=== PATIENT | female | born 1980 | race Caucasian/White ===

== ENCOUNTER 2021-04-13 19:43 | Emergency (ER) | payer MEDICAID ==
[~2021-04-13] VITALS: Ht 162.6 cm; Wt 81.8 kg
[~2021-04-13 19:43] MED LIST: IBUP-1984 PO; LEVO200T43 PO
[2021-04-13] MEDS ORDERED: ALBU6.7H9 INH (20:17)
[2021-04-13 20:55] VITALS: BP 132/77
== END 2021-04-13 21:58 | disposition home or self-care (01) ==
LOC: ER 19:44
DX: U07.1 COVID-19 (principal); F17.210 Nicotine dependence, cigarettes, uncomplicated; F15.10 Other stimulant abuse, uncomplicated
CPT/HCPCS: 36415; 99283; U0003; U0005

== ENCOUNTER 2021-04-20 21:59 | Emergency (ER) | payer MEDICAID ==
[~2021-04-20] VITALS: Ht 162.6 cm; Wt 78.8 kg
[~2021-04-20 21:59] MED LIST changes: +ALBU6.7H9 INH
[2021-04-20 22:44] LABS: BASOPHILS % (AUTO) 0.5 % (0-1); EOSINOPHILS # (AUTO) 0.1 X10'3 (0-0.9); EOSINOPHILS % (AUTO) 1.5 % (0-6); HEMATOCRIT 34.8 % (35.0-45.0); HEMOGLOBIN 10.7 g/dl (12.0-16.0); LYMPHOCYTES # (AUTO) 3.4 X10'3 (1.1-4.8); LYMPHOCYTES % (AUTO) 38.5 % (21-51); MEAN CORPUSCULAR HEMOGLOBIN 20.9 PG (27.0-31.0); MEAN CORPUSCULAR HGB CONC 30.7 g/dL (33.0-36.5); MEAN CORPUSCULAR VOLUME 68.1 FL (78-98); MEAN PLATELET VOLUME 7.5 FL (7.4-10.4); MONOCYTES # (AUTO) 0.7 X10'3 (0-0.9); MONOCYTES % (AUTO) 8.1 % (2-12); NEUTROPHILS # (AUTO) 4.6 X10'3 (1.8-7.7); NEUTROPHILS % (AUTO) 51.4 % (42-75); PLATELET COUNT 451 X10'3 (140-440); RED BLOOD COUNT 5.11 X10'6 (4.20-5.60); RED CELL DISTRIBUTION WIDTH 17.5 % (11.5-14.5); WHITE BLOOD COUNT 8.9 X10'3 (4.5-11.0)
[2021-04-20 22:52] LABS: ALANINE AMINOTRANSFERASE 21 U/L (12-78); ALBUMIN 3.7 G/DL (3.4-5.0); ALBUMIN/GLOBULIN RATIO 0.9 (1.1-1.5); ALKALINE PHOSPHATASE 182 IU/L (46-116); ANION GAP 9 (8-16); ASPARTATE AMINO TRANSFERASE 16 U/L (10-37); BILIRUBIN,TOTAL 0.2 MG/DL (0.1-1.0); BLOOD UREA NITROGEN 21 MG/DL (7-18); BUN/CREATININE RATIO 27.3 (6.6-38.0); CALCIUM 8.4 MG/DL (8.5-10.1); CHLORIDE 106 MMOL/L (99-107); CREATININE 0.77 MG/DL (0.40-0.90); GLUCOSE 117 MG/DL (70-104); POTASSIUM 4.3 MMOL/L (3.5-5.1); SODIUM 141 MMOL/L (135-145); TOTAL CARBON DIOXIDE 26.1 MMOL/L (24-32); TOTAL PROTEIN 7.9 G/DL (6.4-8.2); eGFR 82 ML/MIN
[2021-04-20 23:00] LABS: TROPONIN I < 0.04 NG/ML (0.0-0.05)
[2021-04-20 23:10] LABS: ANISOCYTOSIS 1+; MICROCYTOSIS 2+; PLATELET ESTIMATE INCREASED
[2021-04-21] MEDS ORDERED: DEC1T PO (01:27)
[2021-04-21 01:32] VITALS: BP 137/68
== END 2021-04-21 01:34 | disposition home or self-care (01) ==
LOC: ER 22:00
DX: U07.1 COVID-19 (principal); R20.0 Anesthesia of skin; F15.90 Other stimulant use, unspecified, uncomplicated; Z87.440 Personal history of urinary (tract) infections; Z90.49 Acquired absence of other specified parts of digestive tract; Z79.899 Other long term (current) drug therapy
CPT/HCPCS: 36415; 71045; 80053; 83880; 84484; 85008; 85025; 93005; 99285

== ENCOUNTER 2021-05-18 17:13 | Emergency (ER) | payer MEDICAID ==
[~2021-05-18] VITALS: Ht 162.6 cm; Wt 77.3 kg
[~2021-05-18 17:13] MED LIST changes: +DEC1T PO
[2021-05-18 17:33] VITALS: BP 127/83
[2021-05-18] MEDS ORDERED: ONDA4TAB6 PO (18:09)
== END 2021-05-18 18:25 | disposition home or self-care (01) ==
LOC: ER 17:14
DX: Z02.89 Encounter for other administrative examinations (principal); F15.90 Other stimulant use, unspecified, uncomplicated; R50.9 Fever, unspecified; Z87.440 Personal history of urinary (tract) infections; Z98.890 Other specified postprocedural states; Z90.49 Acquired absence of other specified parts of digestive tract; Z79.899 Other long term (current) drug therapy
CPT/HCPCS: 99283

== ENCOUNTER 2021-09-01 07:36 | Emergency (ER) | payer MEDICAID ==
[~2021-09-01] VITALS: Ht 162.6 cm; Wt 61.4 kg
[~2021-09-01 07:36] MED LIST changes: +ONDA4TAB6 PO
[2021-09-01 08:07] LABS: BASOPHILS # (AUTO) 0.1 X10'3 (0-0.2); BASOPHILS % (AUTO) 1.1 % (0-1); EOSINOPHILS # (AUTO) 0.3 X10'3 (0-0.9); HEMATOCRIT 34.5 % (35.0-45.0); HEMOGLOBIN 11.1 g/dl (12.0-16.0); LYMPHOCYTES # (AUTO) 2.7 X10'3 (1.1-4.8); LYMPHOCYTES % (AUTO) 34.7 % (21-51); MEAN CORPUSCULAR HEMOGLOBIN 23.4 PG (27.0-31.0); MEAN CORPUSCULAR HGB CONC 32.1 g/dL (33.0-36.5); MEAN CORPUSCULAR VOLUME 72.8 FL (78-98); MONOCYTES # (AUTO) 0.5 X10'3 (0-0.9); MONOCYTES % (AUTO) 6.7 % (2-12); NEUTROPHILS # (AUTO) 4.2 X10'3 (1.8-7.7); NEUTROPHILS % (AUTO) 53.5 % (42-75); PLATELET COUNT 412 X10'3 (140-440); RED BLOOD COUNT 4.73 X10'6 (4.20-5.60); RED CELL DISTRIBUTION WIDTH 16.1 % (11.5-14.5); WHITE BLOOD COUNT 7.9 X10'3 (4.5-11.0)
[2021-09-01 08:16] LABS: ALANINE AMINOTRANSFERASE 18 U/L (12-78); ALBUMIN 3.5 G/DL (3.4-5.0); ALBUMIN/GLOBULIN RATIO 0.9 (1.1-1.5); ALKALINE PHOSPHATASE 138 IU/L (46-116); ANION GAP 11 (8-16); ASPARTATE AMINO TRANSFERASE 18 U/L (10-37); BILIRUBIN,TOTAL 0.3 MG/DL (0.1-1.0); BLOOD UREA NITROGEN 13 MG/DL (7-18); BUN/CREATININE RATIO 15.9 (6.6-38.0); CALCIUM 8.9 MG/DL (8.5-10.1); CHLORIDE 104 MMOL/L (99-107); CREATININE 0.82 MG/DL (0.40-0.90); GLUCOSE 86 MG/DL (70-104); POTASSIUM 3.9 MMOL/L (3.5-5.1); SODIUM 140 MMOL/L (135-145); TOTAL CARBON DIOXIDE 25.3 MMOL/L (24-32); TOTAL PROTEIN 7.6 G/DL (6.4-8.2); eGFR 76 ML/MIN
[2021-09-01] MEDS ORDERED: hydrOXYzine 25 MG tablet PO ONE (12:15)
[2021-09-01] MEDS ORDERED: HYDR-3686 PO (13:52)
[2021-09-01 14:02] VITALS: BP 133/97
== END 2021-09-01 14:12 | disposition home or self-care (01) ==
LOC: ER 07:37
DX: R07.89 Other chest pain (principal); F15.90 Other stimulant use, unspecified, uncomplicated; Z79.899 Other long term (current) drug therapy; Z90.49 Acquired absence of other specified parts of digestive tract
CPT/HCPCS: 36415; 71045; 80053; 83880; 84484; 85025; 93005; 99285; Q0177

== ENCOUNTER 2022-11-26 00:32 | Emergency (ER) | payer MEDICAID ==
[~2022-11-26] VITALS: Ht 162.6 cm; Wt 79.2 kg
[~2022-11-26 00:32] MED LIST changes: +ALBU6.7H14 INH; -ALBU6.7H9 INH
[2022-11-26 00:50] LABS: BASOPHILS # (AUTO) 0.1 X10'3 (0-0.2); BASOPHILS % (AUTO) 1.2 % (0-1); EOSINOPHILS # (AUTO) 0.5 X10'3 (0-0.9); EOSINOPHILS % (AUTO) 5.7 % (0-6); HEMATOCRIT 38.9 % (35.0-45.0); HEMOGLOBIN 12.8 g/dl (12.0-16.0); LYMPHOCYTES # (AUTO) 3.5 X10'3 (1.1-4.8); MEAN CORPUSCULAR HEMOGLOBIN 27.6 PG (27.0-31.0); MEAN CORPUSCULAR HGB CONC 32.8 g/dL (33.0-36.5); MEAN CORPUSCULAR VOLUME 84.2 FL (78-98); MEAN PLATELET VOLUME 6.9 FL (7.4-10.4); MONOCYTES # (AUTO) 0.8 X10'3 (0-0.9); MONOCYTES % (AUTO) 9.4 % (2-12); NEUTROPHILS # (AUTO) 3.7 X10'3 (1.8-7.7); NEUTROPHILS % (AUTO) 42.7 % (42-75); PLATELET COUNT 408 X10'3 (140-440); RED BLOOD COUNT 4.62 X10'6 (4.20-5.60); RED CELL DISTRIBUTION WIDTH 15.7 % (11.5-14.5); WHITE BLOOD COUNT 8.6 X10'3 (4.5-11.0)
[2022-11-26 01:04] LABS: ALANINE AMINOTRANSFERASE 22 U/L (12-78); ALBUMIN 3.7 G/DL (3.4-5.0); ALBUMIN/GLOBULIN RATIO 0.9 (1.1-1.5); ALKALINE PHOSPHATASE 162 IU/L (46-116); ANION GAP 8 (8-16); ASPARTATE AMINO TRANSFERASE 18 U/L (10-37); BILIRUBIN,TOTAL 0.2 MG/DL (0.1-1.0); BLOOD UREA NITROGEN 18 MG/DL (7-18); BUN/CREATININE RATIO 26.5 (10.0-20.0); CALCIUM 9.1 MG/DL (8.5-10.1); CHLORIDE 103 MMOL/L (99-107); CREATININE 0.68 MG/DL (0.40-0.90); GLUCOSE 106 MG/DL (70-104); POTASSIUM 3.6 MMOL/L (3.5-5.1); SODIUM 138 MMOL/L (135-145); TOTAL CARBON DIOXIDE 27.1 MMOL/L (24-32); TOTAL PROTEIN 7.6 G/DL (6.4-8.2); eGFR > 90 ML/MIN
[2022-11-26 01:06] LABS: MAGNESIUM 2.2 MG/DL (1.5-2.4)
[2022-11-26 03:50] VITALS: BP 128/86
== END 2022-11-26 03:51 | disposition home or self-care (01) ==
LOC: ER 00:32
DX: R07.89 Other chest pain (principal); L98.9 Disorder of the skin and subcutaneous tissue, unspecified; E03.9 Hypothyroidism, unspecified; F41.9 Anxiety disorder, unspecified; F15.90 Other stimulant use, unspecified, uncomplicated; Z79.899 Other long term (current) drug therapy; Z90.49 Acquired absence of other specified parts of digestive tract
CPT/HCPCS: 36415; 80053; 83735; 83880; 84484; 85025; 93005; 99284

== ENCOUNTER 2024-01-03 13:30 | Outpatient (CLI) | payer MEDICAID | END 2024-01-03 23:59 | disposition home or self-care (01) | LOC: RAD 13:30 | PROVIDERS: ATTEND Family Medicine | DX: M25.512 Pain in left shoulder (principal) | CPT/HCPCS: 73030 ==

== ENCOUNTER 2024-04-11 17:37 | Emergency (ER) | payer MEDICAID ==
[~2024-04-11] VITALS: Ht 162.6 cm; Wt 88.8 kg
[2024-04-11] MEDS ORDERED: SULF1TAB49 PO (19:27)
[2024-04-11] MEDS ORDERED: HYDR-3686 PO (19:27)
[2024-04-11] MEDS ORDERED: CEPH-585 PO (19:27)
[2024-04-11 19:36] VITALS: BP 108/62; PULSE 68; RESP 16; TEMP 97.5; O2SAT 97
== END 2024-04-11 19:38 | disposition home or self-care (01) ==
LOC: ER 17:37
DX: L73.9 Follicular disorder, unspecified (principal); Z79.899 Other long term (current) drug therapy; Z79.1 Long term (current) use of non-steroidal anti-inflammatories (NSAID); Z79.2 Long term (current) use of antibiotics; Z90.49 Acquired absence of other specified parts of digestive tract; Z98.890 Other specified postprocedural states
CPT/HCPCS: 99283

== ENCOUNTER 2025-04-26 09:48 | Emergency (ER) | payer MEDICAID ==
[~2025-04-26] VITALS: Ht 162.6 cm; Wt 89.6 kg
--- NOTE | 2025-04-26 11:08 | RADIOLOGY REPORT ---
CHEST RADIOGRAPH Indication: CP Technique: Single frontal view of the chest was obtained Comparison: CHEST,SINGLE VIEW on DOS: 03/14/23, CHEST,SINGLE VIEW on DOS: 09/01/21, CHEST,SINGLE VIEW o n DOS: 04/20/21, CHEST,SINGLE VIEW on DOS: 09/20/19 FINDINGS: Lines and Tubes: None Lungs: No focal consolidation. Pleura: No effusion. No pneumothorax. Cardiomediastinal contours: Unremarkable Bones: No acute osseous abnormality. IMPRESSION: No acute cardiopulmonary disease.
--- NOTE | 2025-04-26 12:10 | Physician Documentation ---
History of Present Illness General Chief Complaint: Cold, cough & congestion Stated Complaint: COUGH Time Seen by MD: 11:53 OK to notify your PCP?: No Primary Medical Doctor: [facility] Source: patient, RN notes reviewed Mode of Arrival: POV Exam Limitations: no limitations History of Present Illness Initial Comments 45-year-old female, with no significant past medical history other than hypothyroidism, presents to the ED complaining of a productive cough with the last 3-4 days. She also reports body aches, generally feeling unwell, and fever over this time. Temperature last night was 101F. Today she began producing some blood in her sputum and has had shortness of breath. She visited her regular doctor's office yesterday and had negative COVID and negative strep tests. She denies history of similar symptoms. She has never used inhalers. Patient quit smoking cigarettes approximately three years ago but vapes now. Medication Reconciliation Allergies: Coded Allergies: No Known Allergies (Unverified , 04/26/25) Scheduled Albuterol Sulfate (Proventil Hfa), 2 PUFFS INH Q6H Dexamethasone (Decadron), 1 MG PO DAILY Ibuprofen* (Motrin*), 1-2 TAB PO Q8H Levothyroxine Sodium* (Levoxyl*), 200 MCG PO DAILY, (Reported) Ondansetron Hcl (Zofran), 1 TAB PO Q6H Past Medical History Past Medical History: UTI, Thyroid (unspecified), Anxiety Past Surgical History: cholecystectomy, other Other Past Surgical History: thyroidectomy Smoking: Quit greater than 1 year, Cigarettes Alcohol Use: None Drug Use: methamphetamine Lives In: Home Review of Systems All Other Systems at this time: Reviewed and Negative ROS cough as well as other positive symptoms as stated above in the HPI, otherwise all systems are reviewed and negative. Physical Exam Physical Exam Vital Signs: RN Vital Signs have been reviewed: Yes, Temperature: 99.0, Source: Oral, Heart Rate: 95, Respiratory Rate: 22, BP: 150/69, Pulse Oximetry: 95, Weight: 89.600 Oxygen Flow Rate: 0 Pulse Oximetry Reflects: adequate oxygenation Physical Exam VITALS: Reviewed and as above. GENERAL: Alert, no apparent distress. HEENT: Normocephalic, atraumatic, PERRL, EOMI, dry mucosa RESPIRATORY: Crackles to the left base. Rhonchi bilaterally. no respiratory distress. CHEST: No accessory muscle use, no retractions CV: Regular rate, rhythm, no edema, no murmur, No: JVD GI: Soft, non-tender, bowels sounds present, no rebound, guarding, or rigidity MUSCULOSKELETAL No deformities, no edema SKIN: Warm and dry, no rash NEURO: Oriented x4, No motor or sensory deficit PSYCH: Normal mood and affect, no agitation Progress Results/Orders Reviewed/noted all lab results: Yes Results/Orders Medications Received in ER Medications (Trade) Dose Ordered Sig/Nicole Route PRN Reason Start Time Stop Time Status Last Admin Dose Admin (0.9% sodium chloride (NS) 1000ml IV soln) 1,000 ml ONCE ONCE IVB 04/26/25 12:55 04/26/25 12:57 DC 04/26/25 13:28 1,000 ML (Toradol injection) 15 mg ONCE ONCE IV 04/26/25 12:55 04/26/25 12:57 DC 04/26/25 13:28 15 MG Ceftriaxone Sodium/Dextrose 50 ml @ 100 mls/hr ONCE ONCE IV 04/26/25 12:55 04/26/25 13:24 DC 04/26/25 13:27 100 MLS/HR (Zithromax tablet) 500 mg ONCE ONCE PO 04/26/25 12:55 04/26/25 12:57 DC 04/26/25 13:28 500 MG Vital Signs 04/26/25 04/26/25 04/26/25 04/26/25 10:04 12:33 12:41 13:15 Temp 99.0 99.0 99.0 Pulse 95 90 87 Resp 22 18 18 20 B/P (MAP) 150/69 122/83 (96) 137/87 (104) Pulse Ox 95 94 96 O2 Flow Rate 0 0 0 04/26/25 13:28 Resp 18 Laboratory Tests Test 04/26/25 13:24 White Blood Count 9.4 Red Blood Count 4.64 Hemoglobin 13.9 Hematocrit 40.8 Mean Corpuscular Volume 87.8 Mean Corpuscular Hemoglobin 30.0 Mean Corpuscular Hemoglobin Concent 34.1 Red Cell Distribution Width 13.6 Platelet Count 326 Mean Platelet Volume 7.1 L Neutrophils (%) (Auto) 67.4 Lymphocytes (%) (Auto) 17.5 L Monocytes (%) (Auto) 7.3 Eosinophils (%) (Auto) 6.9 H Basophils (%) (Auto) 0.9 Neutrophils # (Auto) 6.4 Lymphocytes # (Auto) 1.7 Monocytes # (Auto) 0.7 Eosinophils # (Auto) 0.6 Basophils # (Auto) 0.1 CBC Comment Sodium Level 141 Potassium Level 4.3 Chloride Level 104 Carbon Dioxide Level 26.9 Anion Gap 10 Blood Urea Nitrogen 10 Creatinine 0.81 Estimated GFR/1.73 m2 76 BUN/Creatinine Ratio 12.3 Glucose Level 91 Calcium Level 9.0 Pro-B-Type Natriuretic Peptide 68 Albumin 3.8 Chemistry Comments EKG/XRAY/CT/US/VASC/MRI Chest X-Ray : Additional Comments CHEST RADIOGRAPH Indication: CP Technique: Single frontal view of the chest was obtained Comparison: CHEST,SINGLE VIEW on DOS: 03/14/23, CHEST,SINGLE VIEW on DOS: 09/01/21, CHEST,SINGLE VIEW on DOS: 04/20/21, CHEST,SINGLE VIEW on DOS: 09/20/19 FINDINGS: Lines and Tubes: None Lungs: No focal consolidation. Pleura: No effusion. No pneumothorax. Cardiomediastinal contours: Unremarkable Bones: No acute osseous abnormality. IMPRESSION: No acute cardiopulmonary disease. Reviewed by myself. Medical Decision Making Additional info obtained from: old records (Seen in March of 2024 for folliculitis) Departure Time of Disposition: 14:26 Disposition: 01 HOME / SELF CARE / HOMELESS Impression: Primary Impression: Acute bronchitis Qualified Codes: J20.9 - Acute bronchitis, unspecified Discharge Instructions: Acute Bronchitis, Adult Additional Instructions: Take antibiotics as prescribed. Follow up with your regular doctor in the next week. Return to the ER for worsening shortness of breath, chest pain, or any other concerns. Education Educated: Patient Educated regarding: diagnosis, treatment, need for follow up Signature Scribe Signature: Scribed for OhlfsBrad MD by Jeannie Galvez . 04/26/25 12:52 BRAD MONTALVO MD Apr 26, 2025 12:10 JEANNIE LEON Apr 26, 2025 12:58
[2025-04-26 13:15] VITALS: BP 137/87; PULSE 87; O2SAT 96
[2025-04-26] MEDS: CefTRIAXone 2gm/D5W 50ml BAG 50 ML IV ONE (13:27)
[2025-04-26 13:28] VITALS: RESP 18
[2025-04-26] MEDS: normal saline 1000ML IV soln IVB ONE (13:28)
[2025-04-26] MEDS: ketorolac trometh 15mg/ml vial 15 MG/ML ML IV ONE (13:28)
[2025-04-26 13:31] LABS: MEAN PLATELET VOLUME 7.1 FL (7.4-10.4); RED CELL DISTRIBUTION WIDTH 13.6 % (11.5-14.5)
[2025-04-26 14:00] LABS: CREATININE 0.81 MG/DL (0.40-0.90); PRO BRAIN NATRIURETIC PEPTIDE 68 PG/ML (0-125); TOTAL CARBON DIOXIDE 26.9 MMOL/L (24-32); eCRCL 75 ML/MIN; eGFR 76 ML/MIN
[2025-04-26] MEDS ORDERED: AZIT-164 PO (14:26)
[2025-04-26 15:05] VITALS: TEMP 99
== END 2025-04-26 15:17 | disposition home or self-care (01) ==
LOC: ER 09:48
DX: J20.9 Acute bronchitis, unspecified (principal); E03.9 Hypothyroidism, unspecified; F41.9 Anxiety disorder, unspecified; F15.90 Other stimulant use, unspecified, uncomplicated; Z90.49 Acquired absence of other specified parts of digestive tract; Z79.899 Other long term (current) drug therapy
CPT/HCPCS: 36415; 71045; 80048; 83880; 85025; 96365; 96366; 96375; 99284; J0696; J1885; J7030